=== PATIENT | female | born 1950 | race Caucasian/White ===

== ENCOUNTER 2016-05-30 03:31 | Inpatient (IN) | payer OTHER ==
[~2016-05-30] VITALS: Ht 157.5 cm; Wt 51.0 kg
[2016-05-30 04:31] LABS: ABSOLUTE BASOPHIL COUNT 0.1 /CUMM (0.0-0.2); ABSOLUTE EOSINOPHIL COUNT 0.1 /CUMM (0.0-0.7); ABSOLUTE GRANULOCYTE CT 10.9 /CUMM (1.4-6.5); ABSOLUTE LYMPH COUNT 3.2 /CUMM (1.2-3.4); ABSOLUTE MONOCYTE COUNT 0.7 /CUMM (0.10-0.60); BASOPHIL % 0.4 % (0.0-2.0); EOSINOPHIL % 0.6 % (0-5); GRANULOCYTE % 72.8 % (42.2-75.2); HEMATOCRIT 43.7 % (37-47); MEAN CORPUSCULAR HGB 29.4 PG (27.0-31.0); MEAN CORPUSCULAR HGB CONC 33.3 G/DL (33.0-37.0); MEAN CORPUSCULAR VOLUME 88.1 FL (81.0-99.0); MEAN PLATELET VOLUME 9.1 FL (7.4-10.4); PLATELET COUNT 359 /CUMM (130-400); RBC DISTRIBUTION WIDTH 14.3 % (11.5-14.5); RED BLOOD CELL CT 4.96 /CUMM (4.20-5.40)
--- NOTE | 2016-05-30 04:40 | RADIOLOGY REPORT ---
EXAMINATION: XR PORTABLE CHEST CLINICAL INFORMATION: Cough and shortness of breath COMPARISON: None TECHNIQUE: Portable AP view of the chest was obtained. FINDINGS: The lungs are well expanded. Increased interstitial markings are seen at the lung bases with bronchial wall thickening. Alejandro B-lines noted. No pneumothorax. No pleural effusion. The cardiomediastinal silhouette is within normal limits. IMPRESSION: Findings are most consistent with mild interstitial edema, although a small airways process is possible.
--- NOTE | 2016-05-30 05:16 | ED DYSPNEA/ASTHMA COMPLAINT ---
History of Present Illness General Chief Complaint: Dyspnea (COPD, CHF, Other) Stated Complaint: DIFF BREATHING Source: patient, family, old records Exam Limitations: no limitations Vital Signs & Intake/Output Vital Signs & Intake/Output Vital Signs Date Time Temp Pulse Resp B/P Pulse O2 O2 Flow FiO2 Ox Delivery Rate 05/30 0634 96.3 74 20 156/93 99 Nasal 2.0L Cannula 05/30 0519 97.9 91 22 150/89 93 Nasal 2.0L Cannula 05/30 0424 97.9 90 24 174/86 94 Nasal 2.0L Cannula Allergies Coded Allergies: codeine (Intermediate, GI UPSET 05/30/16) NSAIDS (Non-Steroidal Anti-Inflamma (Mild, GI UPSETS 05/30/16) albuterol (Mild, JITTERY 05/30/16) Reconcile Medications Aspirin (Aspirin*) 81 MG TAB.CHEW 81 MG PO DAILY HEART (Reported) Clopidogrel Bisulfate (Clopidogrel) 75 MG TABLET 75 MG PO DAILY HEART ( Reported) Diazepam 10 MG TABLET 5 MG PO PRN ANXIETY (Reported) Esomeprazole (Nexium) 40 MG CAPSULE.DR 40 MG PO DAILY ACID REFLUX (Reported) Fenofibrate Nanocrystallized (Fenofibrate) 145 MG TABLET 145 MG PO DAILY CHOLESTEROL (Reported) Furosemide 40 MG TABLET 40 MG PO DAILY CHF (Reported) Metoprolol Succinate 50 MG TAB.ER.24H 50 MG PO DAILY HTN (Reported) Rosuvastatin Calcium (Crestor) 5 MG TABLET 5 MG PO DAILY BAD CHOLESTEROL ( Reported) Triage Note: SEE NURSES NOTE Triage Nurses Notes Reviewed? yes Onset: 2 weeks Duration: week(s):, continues in ED, getting worse Timing: recent history Severity: severe Activities at Onset: rest Prior Episodes/Possible Cause: illness exposure Modifying Factors: Improves With: rest. Worsens With: movement. Associated Symptoms: cough, loss of appetite, wheezing, weakness LMP (ages 10-50): post menopausal : No Patient currently breastfeeds: No HPI: 2 weeks prior to admission patient complains of progressive shortness of breath nonproductive cough chills wheezing weakness nausea and vomiting. She denies complaint of fever chest pain diarrhea abdominal pain dysuria rash bleeding. Past History Travel History Traveled to [place] past 21 day No Medical History Any Pertinent Medical History? see below for history Cardiovascular: OR 204 Respiratory: COPD Gastrointestinal: GERD, hiatal hernia, GALL STONES Renal: KIDNEY STONES Surgical History Surgical History: non-contributory Psychosocial History What is your primary language Chadian Tobacco Use: Current Daily Use Daily Tobacco Use Amount/Type: => 5 Cigarettes daily ETOH Use: denies use Illicit Drug Use: denies illicit drug use Family History Hx Contributory? No Review of Systems Review of Systems Constitutional: Reports: see HPI, chills, malaise, weakness. EENTM: Reports: no symptoms. Respiratory: Reports: see HPI, cough, short of breath, wheezing. Cardiovascular: Reports: no symptoms. GI: Reports: no symptoms. Genitourinary: Reports: no symptoms. Musculoskeletal: Reports: no symptoms. Skin: Reports: no symptoms. Neurological/Psychological: Reports: no symptoms. Hematologic/Endocrine: Reports: no symptoms. Immunologic/Allergic: Reports: no symptoms. All Other Systems: Reviewed and Negative Physical Exam Physical Exam General Appearance: well developed/nourished, alert, awake, anxious, moderate distress Head: atraumatic, normal appearance Eyes: Bilateral: normal appearance, PERRL, EOMI. Ears, Nose, Throat: normal pharynx, normal ENT inspection, hearing grossly normal Neck: normal inspection, supple, full range of motion, no midline tenderness Respiratory: chest non-tender, decreased breath sounds, wheezing, rales, respiratory distress (moderate) Cardiovascular: regular rate/rhythm, normal peripheral pulses, norml femoral pulses equa Peripheral Pulses: 4+ carotid (R), 4+ carotid (L) Gastrointestinal: normal bowel sounds, soft, non-tender, no organomegaly Extremities: normal inspection, normal capillary refill, normal range of motion, no edema Neurologic/Psych: no motor/sensory deficits, awake, alert, oriented x 3, normal gait, normal mood/affect, 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 No Severe Sepsis Present: No Septic Shock Present: No Progress Differential Diagnosis: asthma, AMI, bronchitis, CHF, COPD, pneumonia Plan of Care: Orders Procedure Date/time Status Regular Diet 05/30 B Active Patient Data 05/30 634 Active OXYGEN SETUP (GEN) 05/30 516 Active Saline Lock 05/30 516 Active Admit to inpatient 05/30 516 Active Vital Signs 05/30 516 Active Activity/Ambulation 05/30 516 Active Code Status 05/30 04 Active Intake & Output 05/30 446 Active BLOOD CULTURE 05/30 040 Active TROPONIN LEVEL 05/30 358 Complete LIPASE 05/30 358 Complete COMPREHENSIVE METABOLIC PANEL 05/30 358 Complete CBC WITHOUT DIFFERENTIAL 05/30 358 Complete B-TYPE NATRIURETIC PEP (BNP) 05/30 358 Complete EKG 05/30 033 Active Laboratory Tests 05/30/16 0415: Anion Gap 12, Estimated GFR > 60, BUN/Creatinine Ratio 23.3, Glucose 126 H, Calcium 9.9, Total Bilirubin 0.9, AST 53 H, ALT 46, Alkaline Phosphatase 78, Troponin I < 0.01, Zfa-G-Zljfywerufn Pept 5720 H, Total Protein 7.4, Albumin 4.3, Globulin 3.1, Albumin/Globulin Ratio 1.4, Lipase 123, CBC w Diff NO MAN DIFF REQ, RBC 4.96, MCV 88.1, MCH 29.4, RDW 14.3, MPV 9.1, Gran % 72.8, Lymphocytes % 21.6, Monocytes % 4.6, Eosinophils % 0.6, Basophils % 0.4, Absolute Granulocytes 10.9 H, Absolute Lymphocytes 3.2, Absolute Monocytes 0.7 H, Absolute Eosinophils 0.1, Absolute Basophils 0.1, PUBS MCHC 33.3 Microbiology 05/30 454 BLOOD: Blood Culture - RECD 05/31 427 BLOOD: Blood Culture - RECD Diagnostic Imaging: Viewed by Me: Radiology Read. Discussed w/RAD: Radiology Read. CXR Impression: Findings are most consistent with mild interstitial edema, although a small airways process is possible. Initial ED EKG: normal axis, normal intervals, normal p-waves, normal QRS complex, normal sinus rhythm, abnormal Q waves (inferior) Rhythm Strip: normal sinus rhythm Departure Departure Time of Disposition: 514 Disposition: STILL A PATIENT Condition: Stable Clinical Impression Primary Impression: Pneumonia Qualifiers: Pneumonia type: due to unspecified organism Laterality: bilateral Lung location: unspecified part of lung Qualified Code: J18.9 - Pneumonia, unspecified organism Secondary Impressions: CHF (congestive heart failure) Qualifiers: Congestive heart failure type: unspecified congestive heart failure type Congestive heart failure chronicity: acute Qualified Code: I50.9 - Heart failure, unspecified Nausea and vomiting in adult patient Referrals: UNKNOWN (PCP/Family) Departure Forms: Customer Survey General Discharge Information Admission Note Spoke With: JOB ANDREW MD Documentation of Exam: Documentation of any treatments & extenuating circumstances including Concerns Regarding Discharge (functional status, medication knowledge or non-compliance, living conditions, etc.) that warrant an admission rather than observation: Supplemental oxygen IV steroids IV antibiotic IV diuresis medication adjustment anti-emetic continuing care discharge planning Critical Care Note Critical Care Note Critical Care Time: non-applicable
[2016-05-30] MEDS ORDERED: FUROSEMIDE40 M1 PO (05:33)
[2016-05-30] MEDS ORDERED: DIAZEPAM10 M1 PO (05:34)
[2016-05-30] MEDS ORDERED: METOPROLOL SUCC50 M2 PO (05:34)
[2016-05-30] MEDS ORDERED: CLOPIDOGREL75 M1 PO (05:36)
[2016-05-30] MEDS ORDERED: FENOFIBRATE145 M1 PO (05:37)
[2016-05-30] MEDS ORDERED: NEXIUM40 M1 PO (05:40)
[2016-05-30] MEDS ORDERED: ASPIRIN81 M4 PO (05:41)
[2016-05-30] MEDS ORDERED: CRESTOR5 M1 PO (05:44)
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
[2016-05-30 11:54] LABS: PT 11.5 SEC (9.4-12.5)
[2016-05-30 11:55] VITALS: BP 132/72
--- NOTE | 2016-05-30 12:09 | Cons- Cardiology ---
General Information and HPI Consulting Request Date of Consult: 05/30/16 Requested By: JOB ANDREW MD Reason for Consult: CHF History of Present Illness: The patient is a 66-year-old female with history of CAD, status post PCI in 2003 , COPD, hypertension, hyperlipidemia, GERD who presented with complaint of shortness of breath. She was in her usual state of health until 2 weeks ago. For the past 2 weeks she has noted worsening shortness of breath which is increased with ambulation and with lying flat. She also notes frequent cough productive of small amounts of sputum. She notes recent nausea and had several episodes of vomiting. She has had difficulty sleeping because of the orthopnea. She describes recent chest discomfort which she describes as a sharp pain on the left side of her chest associated with tenderness to palpation of the chest wall. No syncope. No palpitations. No lightheadedness or dizziness. She previously followed up with Dr. Johnson, who , and she is now scheduled to see Dr. Garcia, however she has not seen him yet. Allergies/Medications Allergies: Coded Allergies: codeine (Intermediate, GI UPSET 05/30/16) NSAIDS (Non-Steroidal Anti-Inflamma (Mild, GI UPSETS 05/30/16) albuterol (Mild, JITTERY 05/30/16) atorvastatin (From LIPITOR) (Severe, RESTLES LEGS, MUSCLE THIGHTNES 05/30/16) Home Med List: Aspirin (Aspirin*) 81 MG TAB.CHEW 81 MG PO DAILY HEART (Reported) Clopidogrel Bisulfate (Clopidogrel) 75 MG TABLET 75 MG PO DAILY HEART ( Reported) Diazepam 10 MG TABLET 5 MG PO PRN ANXIETY (Reported) Esomeprazole (Nexium) 40 MG CAPSULE.DR 40 MG PO DAILY ACID REFLUX (Reported) Fenofibrate Nanocrystallized (Fenofibrate) 145 MG TABLET 145 MG PO DAILY CHOLESTEROL (Reported) Furosemide 40 MG TABLET 40 MG PO DAILY CHF (Reported) Metoprolol Succinate 50 MG TAB.ER.24H 50 MG PO DAILY HTN (Reported) Rosuvastatin Calcium (Crestor) 5 MG TABLET 5 MG PO DAILY BAD CHOLESTEROL ( Reported) Current Medications: Current Medications Sig/Rodger Start time Last Medication Dose Route Stop Time Status Admin Acetaminophen 0 .STK-MED ONE 05/30 0845 DC IV Acetaminophen 650 MG Q6P PRN 05/30 0745 AC PO Acetaminophen 1,000 MG Q6P PRN 05/30 0745 AC 05/30 IV 0846 Aspirin 81 MG DAILY 05/30 1000 AC 05/30 PO 1133 Atorvastatin Calcium 20 MG 1700 05/30 1700 DC PO Ceftriaxone Sodium 0 .STK-MED ONE 05/30 0510 DC .ROUTE Ceftriaxone Sodium 1,000 MG ONCE ONE 05/30 0500 DC 05/30 IV 05/30 0501 0518 Clopidogrel Bisulfate 75 MG DAILY 05/30 1000 AC 05/30 PO 1133 Diazepam 5 MG DAILY PRN 05/30 0900 AC PO Fenofibrate 145 MG DAILY 05/30 1000 AC 05/30 PO 1133 Furosemide 40 MG 7:30 AM, & 4:30 PM 05/30 1630 AC 05/30 IV 1646 Furosemide 0 .STK-MED ONE 05/30 0509 DC IV Furosemide 40 MG ONCE ONE 05/30 0500 DC 05/30 IV 05/30 0501 0510 Heparin Sodium 5,000 UNIT Q8 05/30 1400 AC 05/30 (Porcine) SC 1646 Hydromorphone HCl 0.5 MG Q4P PRN 05/30 0745 AC 05/30 IV 1646 Methylprednisolone 0 .STK-MED ONE 05/30 0411 DC .ROUTE Methylprednisolone 125 MG ONCE ONE 05/30 0400 DC 05/30 IV 05/30 0401 0449 Metoclopramide HCl 10 MG ONCE ONE 05/30 0500 DC 05/30 IV 05/30 0501 0500 Metoclopramide HCl 0 .STK-MED ONE 05/30 0441 DC .ROUTE Metoprolol Succinate 50 MG DAILY 05/30 1000 AC 05/30 PO 1133 Omeprazole 40 MG DAILY AC 05/31 0700 AC PO Ondansetron HCl 4 MG ONCE ONE 05/30 0415 DC 05/30 IV 05/30 0416 0449 Ondansetron HCl 0 .STK-MED ONE 05/30 0412 DC .ROUTE Patient Medication 1 UNIT 0700 05/31 0700 AC Teaching ED 05/31 0701 Patient Medication 1 UNIT 1700 05/30 1700 DC 05/30 Teaching ED 05/30 1701 1649 Patient Medication 1 UNIT 1430 05/30 1430 DC 05/30 Teaching ED 05/30 1431 1649 Patient Medication 1 UNIT 1400 05/30 1400 DC 05/30 Teaching ED 05/30 1401 1649 Patient Medication 1 UNIT 1000 05/30 1000 DC 05/30 Teaching ED 05/30 1001 1133 Rosuvastatin Calcium 5 MG 1700 05/31 1700 AC PO Review of Systems Review of Systems: No fever. No chills. No rash. No tremor. No melena. All other systems were reviewed, and were noted to be negative. Past History Travel History Traveled to [place] past 21 day No Medical History Blood Transfusion Hx: No Cardiovascular: hypertension, [place] 2004 HIGH CHOLESTEROL Respiratory: COPD, CHF Gastrointestinal: GERD, hiatal hernia, GALL STONES Renal: KIDNEY STONES Psychiatric: anxiety Surgical History Surgical History: appendectomy, cholecystectomy, hysterectomy (1988), CAD s\p stents in 2003 kidney stones REMOVED carpal tunnel Family History Relations & Conditions If Any: SISTER FH: multiple sclerosis FATHER FH: emphysema MOTHER FH: cirrhosis Psychosocial History Where Do You Live? Home Who Do You Live With? self Services at Home: None Primary Language: Russian Smoking Status: Current Some Day Smoker ETOH Use: denies use Illicit Drug Use: denies illicit drug use Functional Ability ADLs Independent: dressing, eating, toileting, bathing. Ambulation: independent IADLs Independent: shopping, housework, finances, food prep, telephone, transportation , medication admin. Employment History Employment: Retired Profession/Employer Previously employed in [employer] Exam & Diagnostic Data Vital Signs and I&O Vital Signs Date Time Temp Pulse Resp B/P Pulse O2 O2 Flow FiO2 Ox Delivery Rate 05/30 1155 98.0 79 20 132/72 98 Nasal 2.0L Cannula 05/30 1133 68 130/78 05/30 1032 Nasal 2.0L Cannula 05/30 0953 Nasal 2.0L Cannula 05/30 0634 96.3 74 20 156/93 99 Nasal 2.0L Cannula 05/30 0519 97.9 91 22 150/89 93 Nasal 2.0L Cannula 05/30 0424 97.9 90 24 174/86 94 Nasal 2.0L Cannula Intake & Output 05/30 1600 05/30 0800 05/30 0000 05/29 1600 05/29 0800 05/29 0000 Intake Total 800 50 Output Total 300 1350 Balance 500 -1300 Intake, IV 50 Intake, Oral 800 Output, Urine 300 1350 Patient 115 lb 118 lb Weight Physical Exam: Gen: The patient is in no acute distress HEENT: Normal nose, ears, and oropharynx. Pupils equal bilaterally. Conjunctiva normal. Neck: Supple with no JVD, no masses, and no thyromegaly Lungs: Rales in the bases bilaterally with normal respiratory effort Heart: RRR, S1, S2, no murmurs. No peripheral edema, 1+ pulses in the lower extremities bilaterally Abdomen: Soft, nontender, no masses. No hepatomegaly. No splenomegaly Extremities: No clubbing or cyanosis. Normal muscle strength in the upper and lower extremities Skin: Normal skin turgor with no skin ulcers or lesions noted. Neuro: Cranial nerves intact. Sensation intact Psych: Alert and oriented 3 with appropriate affect Labs/Medardo Results: Laboratory Tests 05/30 05/30 05/30 1736 1610 1120 Chemistry Troponin I (< 0.11 ng/ml) < 0.01 < 0.01 Coagulation PT (9.4 - 12.5 SEC) 11.5 INR (0.90 - 1.19) 1.10 Urines Urinalysis LIGHT H Urine Color (YEL,AMB,STR) YEL Urine Clarity (CLEAR) HAZY H Urine pH (5.0 - 8.0) 6.0 Ur Specific [place] (1.001 - 1.035) 1.015 Urine Protein (NEG,<30 MG/DL) NEG Urine Ketones (NEG) NEG Urine Nitrite (NEG) NEG Urine Bilirubin (NEG) NEG Urine Urobilinogen (0.1 - 1.0 EU/dl) 0.2 Ur Leukocyte Esterase (NEG) MOD H Ur Microscopic SEDIMENT EXAMINED Urine WBC (0 - 2 /HPF) 25-50 H Ur Epithelial Cells (NONE,FEW) MOD H Urine Bacteria (NEG/NONE) FEW H Urine Mucus (FEW,NONE) FEW Urine Hemoglobin (NEG) NEG Urine Glucose (N MG/DL) NEG 05/30 0415 Chemistry Sodium (137 - 145 mmol/L) 143 Potassium (3.5 - 5.1 mmol/L) 4.0 Chloride (98 - 107 mmol/L) 107 Carbon Dioxide (22 - 30 mmol/L) 24 Anion Gap (5 - 16) 12 BUN (7 - 17 mg/dL) 21 H Creatinine (0.5 - 1.0 mg/dL) 0.9 Estimated GFR (>60 ml/min) > 60 BUN/Creatinine Ratio (7 - 25 %) 23.3 Glucose (65 - 99 mg/dL) 126 H Hemoglobin A1c (4.2 - 5.8 %) 5.6 Calcium (8.4 - 10.2 mg/dL) 9.9 Total Bilirubin (0.2 - 1.3 mg/dL) 0.9 AST (14 - 36 U/L) 53 H ALT (9 - 52 U/L) 46 Alkaline Phosphatase (<127 U/L) 78 Troponin I (< 0.11 ng/ml) < 0.01 [id number] Pept (<125 pg/mL) 5720 H Total Protein (6.3 - 8.2 g/dL) 7.4 Albumin (3.5 - 5.0 g/dL) 4.3 Globulin (1.9 - 4.2 gm/dL) 3.1 Albumin/Globulin Ratio (1.1 - 2.2 %) 1.4 Lipase (23 - 300 U/L) 123 TSH (0.270 - 4.200 uIU/mL) 6.610 H Hematology CBC w Diff NO MAN DIFF REQ WBC (4.8 - 10.8 /CUMM) 15.0 H RBC (4.20 - 5.40 /CUMM) 4.96 Hgb (12.0 - 16.0 G/DL) 14.6 Hct (37 - 47 %) 43.7 MCV (81.0 - 99.0 FL) 88.1 MCH (27.0 - 31.0 PG) 29.4 RDW (11.5 - 14.5 %) 14.3 Plt Count (130 - 400 /CUMM) 359 MPV (7.4 - 10.4 FL) 9.1 Gran % (42.2 - 75.2 %) 72.8 Lymphocytes % (20.5 - 51.1 %) 21.6 Monocytes % (1.7 - 9.3 %) 4.6 Eosinophils % (0 - 5 %) 0.6 Basophils % (0.0 - 2.0 %) 0.4 Absolute Granulocytes (1.4 - 6.5 /CUMM) 10.9 H Absolute Lymphocytes (1.2 - 3.4 /CUMM) 3.2 Absolute Monocytes (0.10 - 0.60 /CUMM) 0.7 H Absolute Eosinophils (0.0 - 0.7 /CUMM) 0.1 Absolute Basophils (0.0 - 0.2 /CUMM) 0.1 PUBS MCHC (33.0 - 37.0 G/DL) 33.3 Diagnostic Data EKG Results EKG tracing is independently reviewed, and reveals sinus tachycardia at 102, left atrial abnormality, inferior infarct age undetermined CXR Results Findings are most consistent with mild interstitial edema, although a small airways process is possible. Assessment/Plan Assessment/Plan Assessment: 66-year-old female with history of CAD, status post PCI, COPD, hyperlipidemia, and hypertension presenting with shortness of breath and orthopnea. Physical findings are suggestive of acute exacerbation of congestive heart failure. The ejection fraction is unknown. She also notes atypical chest pain. Myocardial infarction has been ruled out with negative troponin 3. Recommendations: * Diurese with IV Lasix, 40 mg every 12 hours * Monitor input and output with daily weights * Check basic metabolic profile daily * Echocardiogram to evaluate left ventricular ejection fraction * Continue other cardiac medications. Consult Acknowledgment - Thank you for your consult request.
--- NOTE | 2016-05-30 12:27 | Cons- Pulmonary ---
General Information and HPI Consulting Request Date of Consult: 05/30/16 Requested By: Dr. Oreilly Reason for Consult: hx of COPD Source of Information: patient Exam Limitations: no limitations History of Present Illness: 66 year old woman. History of COPD per patient (Dx in 2010) after hospitalization at [facility]. Here with congestion, trace leg edema, elevated BNP and dyspnea. She is not wheezing, she has tried symbicort and proair without useful effects in the distant past, however she is not on any inhalers or oxygen. No history of PFTs and has not seen a resource director. Daily smoker for many years. Retired from office work. No environmental exposures. She has a hx of CAd, with stenting in 2003, GERD, HTN, HLD. She has experienced malaise, dyspnea that has worsened over past 2 weeks after a house remodeling. She was exerting herself including painting the ceiling. No sick contacts or travel hx. On lasix at home. Some chest pains that currently resolved. Allergies/Medications Allergies: Coded Allergies: codeine (Intermediate, GI UPSET 05/30/16) NSAIDS (Non-Steroidal Anti-Inflamma (Mild, GI UPSETS 05/30/16) albuterol (Mild, JITTERY 05/30/16) Home Med List: Aspirin (Aspirin*) 81 MG TAB.CHEW 81 MG PO DAILY HEART (Reported) Clopidogrel Bisulfate (Clopidogrel) 75 MG TABLET 75 MG PO DAILY HEART ( Reported) Diazepam 10 MG TABLET 5 MG PO PRN ANXIETY (Reported) Esomeprazole (Nexium) 40 MG CAPSULE.DR 40 MG PO DAILY ACID REFLUX (Reported) Fenofibrate Nanocrystallized (Fenofibrate) 145 MG TABLET 145 MG PO DAILY CHOLESTEROL (Reported) Furosemide 40 MG TABLET 40 MG PO DAILY CHF (Reported) Metoprolol Succinate 50 MG TAB.ER.24H 50 MG PO DAILY HTN (Reported) Rosuvastatin Calcium (Crestor) 5 MG TABLET 5 MG PO DAILY BAD CHOLESTEROL ( Reported) Current Medications: Current Medications Sig/Rodger Start time Last Medication Dose Route Stop Time Status Admin Acetaminophen 0 .STK-MED ONE 05/30 0845 DC IV Acetaminophen 650 MG Q6P PRN 05/30 0745 AC PO Acetaminophen 1,000 MG Q6P PRN 05/30 0745 AC 05/30 IV 0846 Aspirin 81 MG DAILY 05/30 1000 AC 05/30 PO 1133 Atorvastatin Calcium 20 MG 1700 03/13 1700 AC PO Ceftriaxone Sodium 0 .STK-MED ONE 05/30 0510 DC .ROUTE Ceftriaxone Sodium 1,000 MG ONCE ONE 05/30 0500 DC 05/30 IV 05/30 0501 0518 Clopidogrel Bisulfate 75 MG DAILY 05/30 1000 AC 05/30 PO 1133 Diazepam 5 MG DAILY PRN 05/30 0900 AC PO Fenofibrate 145 MG DAILY 05/30 1000 AC 05/30 PO 1133 Furosemide 40 MG 7:30 AM, & 4:30 PM 05/30 1630 AC IV Furosemide 0 .STK-MED ONE 05/30 0509 DC IV Furosemide 40 MG ONCE ONE 05/30 0500 DC 05/30 IV 05/30 0501 0510 Heparin Sodium 5,000 UNIT Q8 05/30 1400 AC (Porcine) SC Hydromorphone HCl 0.5 MG Q4P PRN 05/30 0745 AC 05/30 IV 1042 Methylprednisolone 0 .STK-MED ONE 05/30 0411 DC .ROUTE Methylprednisolone 125 MG ONCE ONE 05/30 0400 DC 05/30 IV 05/30 0401 0449 Metoclopramide HCl 10 MG ONCE ONE 05/30 0500 DC 05/30 IV 05/30 0501 0500 Metoclopramide HCl 0 .STK-MED ONE 05/30 0441 DC .ROUTE Metoprolol Succinate 50 MG DAILY 05/30 1000 AC 05/30 PO 1133 Omeprazole 40 MG DAILY AC 05/31 0700 AC PO Ondansetron HCl 4 MG ONCE ONE 05/30 0415 DC 05/30 IV 05/30 0416 0449 Ondansetron HCl 0 .STK-MED ONE 05/30 0412 DC .ROUTE Patient Medication 1 UNIT 0700 05/31 0700 Teaching ED 05/31 0701 Patient Medication 1 UNIT 1700 05/30 1700 Teaching ED 05/30 1701 Patient Medication 1 UNIT 1430 05/30 1430 Teaching ED 05/30 1431 Patient Medication 1 UNIT 1400 05/30 1400 Teaching ED 05/30 1401 Patient Medication 1 UNIT 1000 05/30 1000 OK 05/30 Teaching ED 05/30 1001 1133 Review of Systems Comments 18 point Review of Systems performed. Positive and negative pertinent findings are deliniated in the HPI. Otherwise the ROS is negative. Past History Travel History Traveled to [place] past 21 day No Medical History Blood Transfusion Hx: No Cardiovascular: hypertension, [place] 2004 HIGH CHOLESTEROL Respiratory: COPD, CHF Gastrointestinal: GERD, hiatal hernia, GALL STONES Renal: KIDNEY STONES Psychiatric: anxiety Surgical History Surgical History: appendectomy, cholecystectomy, hysterectomy (1988), CAD s\p stents in 2003 kidney stones REMOVED carpal tunnel Family History Relations & Conditions If Any: SISTER FH: multiple sclerosis FATHER FH: emphysema MOTHER FH: cirrhosis Psychosocial History Where Do You Live? Home Who Do You Live With? self Services at Home: None Primary Language: Macedonian Smoking Status: Current Some Day Smoker ETOH Use: denies use Illicit Drug Use: denies illicit drug use Functional Ability ADLs Independent: dressing, eating, toileting, bathing. Ambulation: independent IADLs Independent: shopping, housework, finances, food prep, telephone, transportation , medication admin. Employment History Employment: Retired Profession/Employer: Previously employed in [employer] Exam & Diagnostic Data Last 24 Hrs of Vital Signs/I&O Vital Signs Date Time Temp Pulse Resp B/P Pulse O2 O2 Flow FiO2 Ox Delivery Rate 05/30 1133 68 130/78 05/30 1032 Nasal 2.0L Cannula 05/30 0953 Nasal 2.0L Cannula 05/30 0634 96.3 74 20 156/93 99 Nasal 2.0L Cannula 05/30 0519 97.9 91 22 150/89 93 Nasal 2.0L Cannula 05/30 0424 97.9 90 24 174/86 94 Nasal 2.0L Cannula Intake & Output 05/30 1600 05/30 0800 05/30 0000 Intake Total 50 Output Total 300 1350 Balance -300 -1300 Intake, IV 50 Output, Urine 300 1350 Patient 115 lb 118 lb Weight Physical Exam Other Physical Findings: General - Alert, awake and oriented HEENT - normocephalic, atraumatic Cardiovascular - S1, S2 Lungs - bibasilar crackles Abdomen - soft, bowel sounds positive, no tenderness Extremities - trace edema Last 48 Hrs of Labs/Medardo: Laboratory Tests 05/30/16 1120: Troponin I Pending, PT 11.5, INR 1.10 05/30/16 0415: Anion Gap 12, Estimated GFR > 60, BUN/Creatinine Ratio 23.3, Glucose 126 H, Hemoglobin A1c Pending, Calcium 9.9, Total Bilirubin 0.9, AST 53 H, ALT 46, Alkaline Phosphatase 78, Troponin I < 0.01, [id number] Pept 5720 H, Total Protein 7.4, Albumin 4.3, Globulin 3.1, Albumin/Globulin Ratio 1.4, Lipase 123, TSH 6.610 H, CBC w Diff NO MAN DIFF REQ, RBC 4.96, MCV 88.1, MCH 29.4, RDW 14.3, MPV 9.1, Gran % 72.8, Lymphocytes % 21.6, Monocytes % 4.6, Eosinophils % 0.6, Basophils % 0.4, Absolute Granulocytes 10.9 H, Absolute Lymphocytes 3.2, Absolute Monocytes 0.7 H, Absolute Eosinophils 0.1, Absolute Basophils 0.1, PUBS MCHC 33.3 Assessment/Plan Impression/Plan: Impression 66 year old woman - history of CAD - reported COPD history - active tobacco dependence Plan - f/u cardiology recommendations - TTE - from the pulmonary perspective she is doing well and does not appear to be in an exacerbation of COPD - my contact information was provided for the patient - will pursue PFTs as an outpt - would not order any inhalers, will individualize therapy as necessary after PFTs - will consider LDCT screening on an outpatient basis - taper fio2 to off - TRC while hospitalized - DVT prophylaxis at all times Consult Acknowledgment - Thank you for your consult request.
--- NOTE | 2016-05-30 14:49 | Admission Certification ---
Admission Certification Certification Statement - As attending physician, I certify that at the time of - admission, based on clinical presentation, severity of - symptoms, need for further diagnostic testing and - therapeutic interventions, and risk of adverse outcomes - without in-hospital treatment, in my clinical assessment, - this patient requires an acute hospital stay for a minimum - of two nights or longer. I have also considered psychsocial - factors such as support system, advanced age, financial - issues, cognitive issues, and failed out-patient treatments, - past re-admission history, safety of patient, and lack of - compliance as applicable. Specific rationale supporting this admission is: Acute hypoxemic respiratory failure likely CHF exacerbation needs IV Lasix.
[2016-05-30 15:30] VITALS: BP 122/78
[2016-05-30 23:37] VITALS: BP 120/68
[2016-05-31] VITALS (7 sets, daily range): BP systolic 90–110; BP diastolic 50–72
--- NOTE | 2016-05-31 05:59 | PN- Pulmonary ---
Subjective HPI/Critical Care Issues: pt seen and examined feeling well awake comfortable no cp no n/v/d/c some cough persists, dry Objective Current Medications: Current Medications Sig/Rodger Start time Last Medication Dose Route Stop Time Status Admin Acetaminophen 0 .STK-MED ONE 05/30 0845 DC IV Acetaminophen 650 MG Q6P PRN 05/30 0745 AC PO Acetaminophen 1,000 MG Q6P PRN 05/30 0745 AC 05/30 IV 0846 Aspirin 81 MG DAILY 05/30 1000 AC 05/30 PO 1133 Atorvastatin Calcium 20 MG 1700 05/30 1700 DC PO Clopidogrel Bisulfate 75 MG DAILY 05/30 1000 AC 05/30 PO 1133 Diazepam 5 MG DAILY PRN 05/30 0900 AC PO Fenofibrate 145 MG DAILY 05/30 1000 AC 05/30 PO 1133 Furosemide 40 MG 7:30 AM, & 4:30 PM 05/30 1630 AC 05/30 IV 1646 Heparin Sodium 5,000 UNIT Q8 05/30 1400 AC 05/30 (Porcine) SC 2108 Hydromorphone HCl 0.5 MG Q4P PRN 05/30 0745 AC 05/31 IV 0005 Metoprolol Succinate 50 MG DAILY 05/30 1000 AC 05/30 PO 1133 Omeprazole 40 MG DAILY AC 05/31 0700 AC 05/30 PO 2125 Patient Medication 1 UNIT 0700 05/31 0700 AC Teaching ED 05/31 0701 Patient Medication 1 UNIT 1700 05/30 1700 DC 05/30 Teaching ED 05/30 1701 1649 Patient Medication 1 UNIT 1430 05/30 1430 NH 05/30 Teaching ED 05/30 1431 1649 Patient Medication 1 UNIT 1400 05/30 1400 DC 05/30 Teaching ED 05/30 1401 1649 Patient Medication 1 UNIT 1000 05/30 1000 DC 05/30 Teaching ED 05/30 1001 1133 Rosuvastatin Calcium 5 MG 1700 05/31 1700 AC PO Vital Signs & I&O Last 24 Hrs of Vitals and I&O: Vital Signs Date Time Temp Pulse Resp B/P Pulse O2 O2 Flow FiO2 Ox Delivery Rate 05/31 0000 95 Room Air 05/30 2337 98.0 66 18 120/68 97 Room Air 05/30 1600 96 Nasal 2.0L Cannula 05/30 1530 98.0 65 20 122/78 96 Nasal 2.0L Cannula 05/30 1155 98.0 79 20 132/72 98 Nasal 2.0L Cannula 05/30 1133 68 130/78 05/30 1032 Nasal 2.0L Cannula 05/30 0953 Nasal 2.0L Cannula 05/30 0634 96.3 74 20 156/93 99 Nasal 2.0L Cannula Intake & Output 05/31 0800 05/31 0000 05/30 1600 Intake Total 670 800 Output Total 900 300 Balance -230 500 Intake, IV 20 Intake, Oral 650 800 Number 0 Bowel Movements Output, Urine 900 300 Patient 115 lb Weight Exam Other Physical Findings: General - Alert, awake and oriented HEENT - normocephalic, atraumatic Cardiovascular - S1, S2 Lungs - bibasilar crackles Abdomen - soft, bowel sounds positive, no tenderness Extremities - trace edema Results Last 24 Hrs of Lab Results: Laboratory Tests 05/30/16 1736: Urinalysis LIGHT H, Urine Color YEL, Urine Clarity HAZY H, Urine pH 6.0, Ur Specific [place] 1.015, Urine Protein NEG, Urine Ketones NEG, Urine Nitrite NEG, Urine Bilirubin NEG, Urine Urobilinogen 0.2, Ur Leukocyte Esterase MOD H, Ur Microscopic SEDIMENT EXAMINED, Urine WBC 25-50 H, Ur Epithelial Cells MOD H, Urine Bacteria FEW H, Urine Mucus FEW, Urine Hemoglobin NEG, Urine Glucose NEG 05/30/16 1610: Troponin I < 0.01 05/30/16 1120: Troponin I < 0.01, PT 11.5, INR 1.10 Impression/Plan Impression/Plan Impression/Plan: Impression 66 year old woman - history of CAD - reported COPD history - active tobacco dependence Plan - f/u cardiology recommendations - f/u TTE - from the pulmonary perspective she is doing well and does not appear to be in an exacerbation of COPD - my contact information was provided for the patient - will pursue PFTs as an outpt - would not order any inhalers, will individualize therapy as necessary after PFTs - will consider LDCT screening on an outpatient basis - taper fio2 to off - TRC while hospitalized - DVT prophylaxis at all times No new recommendations, taper off o2
--- NOTE | 2016-05-31 08:10 | PN- Housestaff ---
BARBARA DIAZ,WILMER 05/31/16 0809: Subjective Follow-up For: CHF exacerbation Complaints: no complaints Tele-Events Since Last Visit: NSR Subjective: The patient was in a pleasant mood, she has been off oxygen since the morning and has been tolerating well. Review of Systems Constitutional: Reports: see HPI. Objective Last 24 Hrs of Vital Signs/I&O Vital Signs Date Time Temp Pulse Resp B/P Pulse O2 O2 Flow FiO2 Ox Delivery Rate 05/31 0822 54 122/72 05/31 0743 97.8 54 18 110/68 97 Room Air 05/31 0000 95 Room Air 05/30 2337 98.0 66 18 120/68 97 Room Air 05/30 1600 96 Nasal 2.0L Cannula 05/30 1530 98.0 65 20 122/78 96 Nasal 2.0L Cannula 05/30 1155 98.0 79 20 132/72 98 Nasal 2.0L Cannula 05/30 1133 68 130/78 05/30 1032 Nasal 2.0L Cannula 05/30 0953 Nasal 2.0L Cannula Intake & Output 05/31 1600 05/31 0800 05/31 0000 Intake Total 200 670 Output Total 400 900 Balance -200 -230 Intake, IV 20 Intake, Oral 200 650 Number 0 Bowel Movements Output, Urine 400 900 Patient 113 lb Weight Physical Exam General Appearance: Alert, Oriented X3 Skin: No Rashes, No Breakdown HEENT: PERRLA, EOMI Neck: No JVD, No thryomegaly Lymphatic: Axillary nl, Cervical nl Cardiovascular: Normal S1, Normal S2, No Murmurs Lungs: b/l basal crackles Abdomen: Soft, No Tenderness Neurological: Normal Speech, Strength at 5/5 X4 Ext Assessment/Plan Assessment: This is a 66-year-old female with a past medical history of hypertension, status post [place] and 3 stents placement in 2003, who presented to the [facility] with worsening shortness of breath. Assessment 1. Acute hypoxia likely secondary to acute CHF HFrEF as the echo shows 40-45% of EF and inferior wall akinesia 2. History of coronary artery disease 3. History of hypertension 4. History of GERD Plan Continue with telemetry for the next 24 hours if remaining in normal sinus rhythm we can DC telemetry -Patient has been in negative fluid balance of 1 L the last 24 hours .C/w Iv diureseis and probably switch to by mouth tomorrow at her home dose- -she should be started on a low-dose GISELA inhibitor, consider starting her on lisinopril 10 mg daily(will discuss with cardiology) -Continue with aspirin and Plavix -Continue with other medications -Consider starting omeprazole 20 mg daily considering the complaints of heartburn -Due to prophylaxis at all times -Ambulation as tolerated by the patient and possible discharge in the next 24 hours -The patient needs to be given the referral for a new primary care physician and youth teacher at the time of discharge -DVT ppx with ALPS alone as she has persistent bleeding from the s/q heparin site. Problem List: 1. CHF (congestive heart failure) 2. Pneumonia Pain Ratin Pain Location: heart burn Pain Goal: Remain pain free Pain Plan: po tyelnol asneeded Tomorrow's Labs & Rationales: cbc and bep DVT/Prophylaxis: mechanical, HAS BEEN BLEEDING AT THE SITE OF HEPARIN INJECTION. WILL C/W ALPS AT THIS POINT Consulting Request: Consulting Specialty: Cardiology HARRIET KATE MD 05/31/16 1309: Attending MD Review Statement Attending Statement Attending MD Statement: examined this patient, discuss w/resident/PA/TEST AUTOMATION ARCHITECT, agreed w/resident/PA/TEST AUTOMATION ARCHITECT, reviewed EMR data (avail), discussed with nursing, discussed with case mgmt, reviewed images Attending Assessment/Plan: Pt feels good and she feels like she is markedly better. She is off oxygen and able to talk. We spoke to Dr. Pierre and we are going to continue Lasix 40 IV twice a day today. Her usual outpatient dose is 40 daily. Her echo shows an EF of 40% so in addition to aspirin and Plavix and beta blaze and statin we are going to start lisinopril 10 mg a day. We are going to closely follow her renal function. Her COPD is stable at this point and will follow that. We are treating her for an acute systolic heart failure exacerbation.
[2016-05-31 08:26] LABS: ABSOLUTE BASOPHIL COUNT 0 /CUMM (0.0-0.2); ABSOLUTE EOSINOPHIL COUNT 0.1 /CUMM (0.0-0.7); ABSOLUTE GRANULOCYTE CT 4.3 /CUMM (1.4-6.5); ABSOLUTE LYMPH COUNT 4.3 /CUMM (1.2-3.4); ABSOLUTE MONOCYTE COUNT 0.6 /CUMM (0.10-0.60); BASOPHIL % 0.1 % (0.0-2.0); EOSINOPHIL % 0.6 % (0-5); GRANULOCYTE % 46.2 % (42.2-75.2); MEAN CORPUSCULAR HGB 29.5 PG (27.0-31.0); MEAN CORPUSCULAR HGB CONC 33.6 G/DL (33.0-37.0); MEAN CORPUSCULAR VOLUME 87.9 FL (81.0-99.0); PLATELET COUNT 316 /CUMM (130-400); RBC DISTRIBUTION WIDTH 14.4 % (11.5-14.5); RED BLOOD CELL CT 4.28 /CUMM (4.20-5.40)
--- NOTE | 2016-05-31 08:28 | ECHOCARDIOGRAM REPORT ---
MARCO ANTONIO CHOWDHURY Age: 66 : 1950 Gender: F Exam Date: 05/30/2016 14:25 Exam Location: [place] Ht (in): 62 Wt (lb): 115 BSA: 1.51 BP: 130 / 78 Ordering Physician: EVELIO ROYAL MD Referring Physician: Dane Pierre MD Technologist: Deborah Shah GABE Room Number: [id number] Indications: SHORTNESS OF BREATH Rhythm: Sinus Technical Quality: Good FINDINGS Left Ventricle Normal size left ventricle. Left ventricular ejection fraction is estimated at 40-45%. Midly decreased left ventricular systolic function. Inferior hypokinesis. Right Ventricle Normal right ventricular size and function. Right Atrium Normal right atrial size. Left Atrium Normal left atrial size. Mitral Valve Mitral valve thickened. Pgdp-wx-ortlwzat mitral regurgitation. Aortic Valve Diffuse thickening (sclerosis) of the aortic valve cusps without reduced excursion. No aortic stenosis. No aortic regurgitation. Tricuspid Valve Tricuspid valve not well visualized, grossly normal. Mild tricuspid regurgitation. No evidence of pulmonary hypertension. Pulmonic Valve Pulmonic valve not well visualized, grossly normal. Trace pulmonic regurgitation. Pericardium No pericardial effusion. Great Vessels Normal size aortic root. CONCLUSIONS Normal size left ventricle. Left ventricular ejection fraction is estimated at 40-45%. Midly decreased left ventricular systolic function. Inferior hypokinesis. Kyft-nz-hzcsrqki mitral regurgitation. Mild tricuspid regurgitation. Trace pulmonic regurgitation. Dane Pierre M.D. (Electronically Signed) Final Date: 31 May 2016 08:27 MEASUREMENTS (Male / Female) Normal Values 2D ECHO LV Diastolic Diameter PLAX 4.5 cm 4.2 - 5.9 / 3.9 - 5.3 cm LV Systolic Diameter PLAX 3.4 cm 2.1 - 4.0 cm LV Fractional Shortening PLAX 24.4 % 25 - 46 % LV Ejection Fraction 2D Teich 48.7 % IVS Diastolic Thickness 1.1 cm LVPW Diastolic Thickness 1.0 cm LV Relative Wall Thickness 0.5 RV Internal Dim ED PLAX 3.1 cm 1.9 - 3.8 cm LVOT Diameter 1.8 cm Aortic Root Diameter 2.6 cm LA Systolic Diameter LX 3.8 cm 3.0 - 4.0 / 2.7 - 3.8 cm LA Volume 43.0 cm 18 - 58 / 22 - 52 cm Ascending Aorta Diameter 3.4 cm DOPPLER AV Peak Velocity 110.0 cm/s AV Peak Gradient 4.8 mmHg AV Mean Velocity 84.0 cm/s AV Mean Gradient 3.0 mmHg AV Velocity Time Integral 24.9 cm LVOT Peak Velocity 96.3 cm/s LVOT Peak Gradient 3.7 mmHg LVOT Mean Velocity 65.0 cm/s LVOT Mean Gradient 2.0 mmHg LVOT Velocity Time Integral 18.9 cm LVOT Stroke Volume 48.1 cm AV Area Cont Eq vti 1.9 cm AV Area Cont Eq pk 2.2 cm MV Peak Velocity 111.0 cm/s MV Peak Gradient 4.9 mmHg MV Mean Velocity 60.1 cm/s MV Mean Gradient 2.0 mmHg Mitral E Point Velocity 106.0 cm/s Mitral A Point Velocity 52.3 cm/s Mitral E to A Ratio 2.0 MV PHT Velocity 115.0 cm/s MV Deceleration [place] 289.0 cm/s MV Pressure Half Time 119.4 ms MV Area PHT 1.8 cm MV Deceleration Time 180.0 ms TR Peak Velocity 294.0 cm/s TR Peak Gradient 34.6 mmHg Right Atrial Pressure 10.0 mmHg Pulmonary Artery Systolic Pressu 44.6 mmHg Right Ventricular Systolic Press 44.6 mmHg PV Peak Velocity 66.1 cm/s PV Peak Gradient 1.7 mmHg PV Mean Velocity 49.3 cm/s PV Mean Gradient 1.0 mmHg PV Velocity Time Integral 18.2 cm LV E' Lateral Velocity 6.4 cm/s Mitral E to LV E' Lateral Ratio 16.5 LV E' Septal Velocity 4.2 cm/s Mitral E to LV E' Septal Ratio 25.3
[2016-05-31 09:15] LABS: HEMATOCRIT 37.6 % (37-47)
[2016-05-31 09:28] LABS: WHITE BLOOD CELL COUNT 9.2 /CUMM (4.8-10.8)
--- NOTE | 2016-05-31 10:15 | PN- Cardiology ---
Subjective Subjective: The patient reports that she is feeling better. Shortness of breath is improving, but is not yet back to baseline. Still with orthopnea. No chest pain. No palpitations. No diaphoresis. Objective Vital Signs and I&Os Vital Signs Date Time Temp Pulse Resp B/P Pulse O2 O2 Flow FiO2 Ox Delivery Rate 05/31 0822 54 122/72 05/31 0743 97.8 54 18 110/68 97 Room Air 05/31 0000 95 Room Air 05/30 2337 98.0 66 18 120/68 97 Room Air 05/30 1600 96 Nasal 2.0L Cannula 05/30 1530 98.0 65 20 122/78 96 Nasal 2.0L Cannula 05/30 1155 98.0 79 20 132/72 98 Nasal 2.0L Cannula 05/30 1133 68 130/78 05/30 1032 Nasal 2.0L Cannula Intake & Output 05/31 1600 05/31 0800 05/31 0000 05/30 1600 05/30 0800 05/30 0000 Intake Total 200 670 800 50 Output Total 400 599 600 5528 Balance -200 -230 500 -1300 Intake, IV 20 50 Intake, Oral 200 650 800 Number 0 Bowel Movements Output, Urine 400 052 514 3876 Patient 113 lb 115 lb 118 lb Weight Physical Exam: Gen: The patient is in no acute distress HEENT: Normal nose, ears, and oropharynx. Pupils equal bilaterally. Conjunctiva normal. Neck: Supple with no JVD, no masses, and no thyromegaly Lungs: Rales in the bases bilaterally with normal respiratory effort Heart: RRR, S1, S2, no murmurs. No peripheral edema, 1+ pulses in the lower extremities bilaterally Abdomen: Soft, nontender, no masses. No hepatomegaly. No splenomegaly Extremities: No clubbing or cyanosis. Normal muscle strength in the upper and lower extremities Skin: Normal skin turgor with no skin ulcers or lesions noted. Neuro: Cranial nerves intact. Sensation intact Psych: Alert and oriented 3 with appropriate affect Current Medications: Current Medications Sig/Rodger Start time Last Medication Dose Route Stop Time Status Admin Acetaminophen 650 MG Q6P PRN 05/30 0745 AC PO Acetaminophen 1,000 MG Q6P PRN 05/30 0745 AC 05/30 IV 0846 Aspirin 81 MG DAILY 05/30 1000 AC 05/31 PO 0821 Atorvastatin Calcium 20 MG 1700 05/30 1700 DC PO Clopidogrel Bisulfate 75 MG DAILY 05/30 1000 AC 05/31 PO 0822 Diazepam 5 MG DAILY PRN 05/30 0900 AC PO Fenofibrate 145 MG DAILY 05/30 1000 AC 05/31 PO 0822 Furosemide 40 MG DAILY 06/01 1000 AC IV Furosemide 40 MG 7:30 AM, & 4:30 PM 05/30 1630 DC 05/31 IV 0821 Heparin Sodium 5,000 UNIT Q8 05/30 1400 AC 05/31 (Porcine) SC 0602 Hydromorphone HCl 0.5 MG Q4P PRN 05/30 0745 AC 05/31 IV 0821 Metoprolol Succinate 50 MG DAILY 05/30 1000 AC 05/31 PO 0822 Omeprazole 20 MG DAILY AC 05/31 0943 AC PO Omeprazole 40 MG DAILY AC 05/31 0700 AC 05/31 PO 0602 Patient Medication 1 UNIT 0700 05/31 0700 DC 05/31 Teaching ED 05/31 0701 0604 Patient Medication 1 UNIT 1700 05/30 1700 VT 05/30 Teaching ED 05/30 1701 1649 Patient Medication 1 UNIT 1430 05/30 1430 DC 05/30 Teaching ED 05/30 1431 1649 Patient Medication 1 UNIT 1400 05/30 1400 DC 05/30 [facility] ED 05/30 1401 1649 Potassium Chloride 40 MEQ ONCE ONE 05/31 0945 DC PO 05/31 0946 Rosuvastatin Calcium 5 MG 1700 05/31 1700 AC PO Results Last 48 Hrs of Labs/Mics: Laboratory Tests 05/31/16 0742: Anion Gap 11, Estimated GFR 55 L, BUN/Creatinine Ratio 23.0, Magnesium 2.1, Triglycerides 262 H, Cholesterol 129, LDL Cholesterol, Calc 41 L, HDL Cholesterol 36 L, Cholesterol/HDL Ratio 4, CBC w Diff NO MAN DIFF REQ, RBC 4.28 , MCV 87.9, MCH 29.5, RDW 14.4, MPV 9.0, Gran % 46.2, Lymphocytes % 46.1, Monocytes % 7.0, Eosinophils % 0.6, Basophils % 0.1, Absolute Granulocytes 4.3, Absolute Lymphocytes 4.3 H, Absolute Monocytes 0.6, Absolute Eosinophils 0.1, Absolute Basophils 0, PUBS MCHC 33.6 05/30/16 1736: Urinalysis LIGHT H, Urine Color YEL, Urine Clarity HAZY H, Urine pH 6.0, Ur Specific [place] 1.015, Urine Protein NEG, Urine Ketones NEG, Urine Nitrite NEG, Urine Bilirubin NEG, Urine Urobilinogen 0.2, Ur Leukocyte Esterase MOD H, Ur Microscopic SEDIMENT EXAMINED, Urine WBC 25-50 H, Ur Epithelial Cells MOD H, Urine Bacteria FEW H, Urine Mucus FEW, Urine Hemoglobin NEG, Urine Glucose NEG 05/30/16 1610: Troponin I < 0.01 05/30/16 1120: Troponin I < 0.01, PT 11.5, INR 1.10 05/30/16 0415: Anion Gap 12, Estimated GFR > 60, BUN/Creatinine Ratio 23.3, Glucose 126 H, Hemoglobin A1c 5.6, Calcium 9.9, Total Bilirubin 0.9, AST 53 H, ALT 46, Alkaline Phosphatase 78, Troponin I < 0.01, Lli-V-Mgovifcgkoe Pept 5720 H, Total Protein 7.4, Albumin 4.3, Globulin 3.1, Albumin/Globulin Ratio 1.4, Lipase 123, TSH 6.610 H, CBC w Diff NO MAN DIFF REQ, RBC 4.96, MCV 88.1, MCH 29.4, RDW 14.3, MPV 9.1, Gran % 72.8, Lymphocytes % 21.6, Monocytes % 4.6, Eosinophils % 0.6, Basophils % 0.4, Absolute Granulocytes 10.9 H, Absolute Lymphocytes 3.2, Absolute Monocytes 0.7 H, Absolute Eosinophils 0.1, Absolute Basophils 0.1, PUBS MCHC 33.3 Microbiology 05/31 1735 URINE ROUT: Legionella Antigen - COMP 05/31 1735 URINE ROUT: Streptococcus pneumoniae Antigen (M - COMP 05/30 1729 NASOPHARYN: Influenza Virus A & B Rapid Smear - COMP Recent Imaging Studies: Chest x-ray: Findings are most consistent with mild interstitial edema, although a small airways process is possible. Echocardiogram: Normal size left ventricle. Left ventricular ejection fraction is estimated at 40-45%. Midly decreased left ventricular systolic function. Inferior hypokinesis. Txcv-ds-ruitlidc mitral regurgitation. Mild tricuspid regurgitation. Trace pulmonic regurgitation. Assessment/Plan Assessment/Plan Assessment: 1. CAD, status post PCI 2. Hypertension 3. Hyperlipidemia 4. Acute heart failure with reduced ejection fraction Plan: * Continue IV Lasix * Monitor input and output with daily weights * Supplement potassium to greater than 4.0, and check magnesium level * Continue metoprolol * Start lisinopril 10 mg daily for reduced ejection fraction Continue telemetry? Yes
--- NOTE | 2016-05-31 18:04 | Event Note ---
Event Note Event Note: I was paged by the RN that patient was feeling slightly dizzy.When i saw the patient she was complaing of feeling slightly weak and slightly dizzy Her Vitals were as follows: BP 90/50 HR 52(baseline is 50-60), RR 18,Saturation 0f 94% on 1L NC A repeat BP after 30 mins was 92/60 Assessment: The patient BP might be secondary to the addition of ACEI as lillie says that she was on lisinopril many years back and had to be taken off by her amortization clerk due to low BP PLan Will give 250 ml of NS bolus and if still persistent consider giving another 250 Ml -Consder reassessing the dose of Lisinopril or BB in the morning after discussing with amortization clerk -Hold evening dose of lasix until SBP improves >110 Plan discussed in detail withh Night team,Patient and RN.
[2016-05-31] MEDS ORDERED: LISINOPRIL10 M1 PO (20:07)
--- NOTE | 2016-05-31 20:20 | Patient Discharge Instructions ---
Discharge Instructions General Discharge Information You were seen/treated for: Acute CHF You had these procedures: none Special Instructions: PLease f/u with your PCP in1 week of discharge. Acute Coronary Syndrome Inclusion Criteria At DC or during hospital stay patient has or had the following: ACS DIAGNOSIS No Discharge Core Measures Meds if any: Prescribed or Continued at Discharge Meds if any: NOT Prescribed or Continued at Discharge Congestive Heart Failure Inclusion Criteria At DC or during hospital stay patient has or had the following: CHF DIAGNOSIS Yes Discharge Core Measures Meds if any: Prescribed or Continued at Discharge GISELA/ARB for EF <40% No (hypotension to lisinopril) Meds if any: NOT Prescribed or Continued at Discharge Cerebrovascular accident Inclusion Criteria At DC or during hospital stay patient has or had the following: CVA/TIA Diagnosis No Discharge Core Measures Meds if any: Prescribed or Continued at Discharge Meds if any: NOT Prescribed or Continued at Discharge Venous thromboembolism Inclusion Criteria VTE Diagnosis No VTE Type NONE VTE Confirmed by (Test) NONE Discharge Core Measures - Per Current guidelines, there needs to be overlap - treatment for the first 5 days of Warfarin therapy. - If discharged on Warfarin prior to 5 days of - overlap therapy, the patient will need to be - assessed for post discharge needs including - *Post discharge parental anticoagulation - *Warfarin and/or parental anticoagulation education - *Follow up date to check INR post discharge At least 5 days overlap therapy as Inpatient No Meds if any: Prescribed or Continued at Discharge Note: Overlap Therapy is Warfarin and Anticoagulant Meds if any: NOT Prescribed or Continued at Discharge
[2016-06-01 00:55] VITALS: BP 140/90
--- NOTE | 2016-06-01 07:52 | PN- Housestaff ---
SUSHANT CASH 06/01/16 0751: Subjective Follow-up For: CHF exacerbation Subjective: Patient seen and examined today. Overnight ecvents noted. Patient reports improvement in her symptoms today. Blood pressure looks good 136/90. She is on 2 L NC, uses no oxygen at home. Per nursing staff, she her pulse oximetery on ambulation has been fine without the oxygen Review of Systems Constitutional: Reports: see HPI. Objective Last 24 Hrs of Vital Signs/I&O Vital Signs Date Time Temp Pulse Resp B/P Pulse O2 O2 Flow FiO2 Ox Delivery Rate 06/01 1042 65 136/90 06/01 0816 97.6 65 18 136/90 96 Room Air 06/01 0055 140/90 06/01 0000 Room Air 05/31 2347 98.1 60 18 108/60 97 Nasal Cannula 05/31 2220 108/60 05/31 1901 110/72 05/31 1757 102/68 05/31 1616 92/60 05/31 1553 97.4 56 20 90/50 96 Nasal 2.0L Cannula Intake & Output 06/01 1600 06/01 0800 06/01 0000 Intake Total 240 Output Total Balance 240 Intake, Oral 240 Patient 51.029 kg Weight Physical Exam General Appearance: Alert, Oriented X3, Cooperative, No Acute Distress Skin: No Rashes HEENT: Atraumatic Neck: Supple Cardiovascular: Regular Rate, Normal S1, Normal S2 Lungs: Clear to Auscultation, Normal Air Movement Abdomen: Normal Bowel Sounds, Soft, No Tenderness Extremities: No Edema, Normal Pulses Current Medications: Current Medications Sig/Rodger Start time Last Medication Dose Route Stop Time Status Admin Acetaminophen 650 MG Q6P PRN 05/30 0745 AC PO Acetaminophen 1,000 MG Q6P PRN 05/30 0745 AC 06/01 IV 0710 Aspirin 81 MG DAILY 05/30 1000 AC 06/01 PO 1041 Calcium Carbonate 500 MG DAILY 05/31 1343 AC PO Clopidogrel Bisulfate 75 MG DAILY 05/30 1000 AC 06/01 PO 1042 Diazepam 5 MG DAILY PRN 05/30 0900 AC PO Fenofibrate 145 MG DAILY 05/30 1000 AC 06/01 PO 1042 Furosemide 40 MG 7:30 AM, & 4:30 PM 06/01 0730 AC 06/01 IV 1041 Furosemide 40 MG BID 05/31 1630 DC IV Hydromorphone HCl 0.5 MG Q4P PRN 05/30 0745 DC 06/01 IV 0748 Lidocaine 1 PAT DAILY 06/01 1129 AC EXT Lisinopril 10 MG DAILY 05/31 1017 DC 05/31 PO 1159 Metoprolol Succinate 50 MG DAILY 05/30 1000 AC 06/01 PO 1042 Omeprazole 40 MG DAILY AC 05/31 0700 AC 06/01 PO 0709 Oxycodone/ 1 TAB Q6P PRN 05/31 1200 DC 05/31 Acetaminophen PO 1159 Rosuvastatin Calcium 5 MG 1700 05/31 1700 AC 05/31 PO 1737 Sodium Chloride 250 ML BOLUS ONE 05/31 1630 DC 05/31 IV 05/31 1729 1651 Last 24 Hrs of Lab/Medardo Results Last 24 Hrs of Labs/Mics: Laboratory Tests 06/01/16 0605: Anion Gap 13, Estimated GFR 45 L, BUN/Creatinine Ratio 27.5 H Assessment/Plan Assessment: This is a 66-year-old female with a past medical history of hypertension, status post [place] and 3 stents placement in 2003, who presented to the [facility] with worsening shortness of breath. Problem list 1. Acute hypoxia likely secondary to acute CHF HFrEF as the echo shows 40-45% of EF and inferior wall akinesia 2. History of coronary artery disease 3. History of hypertension 4. History of GERD Plan Dr. Gely masterson with Dr. Burgos today, regarding her events from overnight. The hypotension was most likely dye to 10 mg of lisinopril which has been discontinued now. Will continue on 40 mg of lasix daily with an outpatient follow up with Dr. Pierre or someone in their group. Her Senior Mechanical Technician in [facility] passes away so she needs a new collision center manager. Patient would need to be plugged into a CHF clinic to prevent excerbation of her CHF and for the need of IV lasix. She will be kept off lisinopril as she developed hypotension on it. Patient will be continued on aspirin and Plavix SHe is started on omeprazole 20 mg daily considering the complaints of heartburn DVT ppx with ALPS alone as she has persistent bleeding from the s/q heparin site. Problem List: 1. CHF (congestive heart failure) Pain Ratin Pain Location: n/a Pain Goal: Pain 4 or less Pain Plan: tylenol prn for pain tylenol 3 for pain Tomorrow's Labs & Rationales: cbc bep Consulting Request: Consulting Specialty: Cardiology GELY KATE MD 06/01/16 1115: Attending MD Review Statement Attending Statement Attending MD Statement: examined this patient, discuss w/resident/PA/GRINDER SET UP OPERATOR, agreed w/resident/PA/GRINDER SET UP OPERATOR, reviewed EMR data (avail), discussed with nursing, discussed with case mgmt, reviewed images Attending Assessment/Plan: Events overnight noted. Patient got her first dose of lisinopril 10 mg yesterday around noon and later in the afternoon she dropped her blood pressure. The Lasix was held and she wasn't given her Lasix till early a.m. She is irritated about this although I did try to explain to her at length the new EF of 40% and that's why the need for lisinopril. For now we have discontinued it. She is on the Lasix 40 IV twice a day. Her BUN and creatinine are up to 33 and 1.2 although her respiratory status appears markedly improved. She is also taking quite a lot of the IV Dilaudid. She took 3 or 4 doses yesterday and 2 doses of the day of admission. I explained to her at length the risks of opiate addiction and the need to escalate slowly. We will stop the IV Dilaudid, use the Lidoderm patch and Tylenol No. 3 and escalate analgesia in a stepwise fashion for chronic back pain. At this point will talk to cardiology about the heart failure namely the acute systolic heart failure with an EF of 40%
[2016-06-01 08:16] VITALS: BP 136/90
[2016-06-01 10:42] VITALS: BP 136/90
[2016-06-01] MEDS ORDERED: TYLENOL WITH C1 EAC1 PO (12:41)
--- NOTE | 2016-06-01 13:39 | PN- Pulmonary ---
Subjective HPI/Critical Care Issues: pt seen and examined doing well off oxygen dc planning no n/v/d/c Objective Current Medications: Current Medications Sig/Rodger Start time Last Medication Dose Route Stop Time Status Admin Acetaminophen 650 MG Q6P PRN 05/30 0745 AC PO Acetaminophen 1,000 MG Q6P PRN 05/30 0745 AC 06/01 IV 0710 Aspirin 81 MG DAILY 05/30 1000 AC 06/01 PO 1041 Calcium Carbonate 500 MG DAILY 05/31 1343 AC PO Clopidogrel Bisulfate 75 MG DAILY 05/30 1000 AC 06/01 PO 1042 Diazepam 5 MG DAILY PRN 05/30 0900 AC PO Fenofibrate 145 MG DAILY 05/30 1000 AC 06/01 PO 1042 Furosemide 40 MG 7:30 AM, & 4:30 PM 06/01 0730 AC 06/01 IV 1041 Furosemide 40 MG BID 05/31 1630 DC IV Hydromorphone HCl 0.5 MG Q4P PRN 05/30 0745 DC 06/01 IV 0748 Lidocaine 1 PAT DAILY 06/01 1129 AC EXT Lisinopril 10 MG DAILY 05/31 1017 DC 05/31 PO 1159 Metoprolol Succinate 50 MG DAILY 05/30 1000 AC 06/01 PO 1042 Omeprazole 40 MG DAILY AC 05/31 0700 AC 06/01 PO 0709 Oxycodone/ 1 TAB Q6P PRN 05/31 1200 DC 05/31 Acetaminophen PO 1159 Rosuvastatin Calcium 5 MG 1700 05/31 1700 AC 05/31 PO 1737 Sodium Chloride 250 ML BOLUS ONE 05/31 1630 DC 05/31 IV 05/31 1729 1651 Vital Signs & I&O Last 24 Hrs of Vitals and I&O: Vital Signs Date Time Temp Pulse Resp B/P Pulse O2 O2 Flow FiO2 Ox Delivery Rate 06/01 1042 65 136/90 06/01 0816 97.6 65 18 136/90 96 Room Air 06/01 0055 140/90 06/01 0000 Room Air 05/31 2347 98.1 60 18 108/60 97 Nasal Cannula 05/31 2220 108/60 05/31 1901 110/72 05/31 1757 102/68 05/31 1616 92/60 05/31 1553 97.4 56 20 90/50 96 Nasal 2.0L Cannula Intake & Output 06/01 1600 06/01 0800 06/01 0000 Intake Total 240 Output Total Balance 240 Intake, Oral 240 Patient 113 lb Weight Exam Other Physical Findings: General - Alert, awake and oriented HEENT - normocephalic, atraumatic Cardiovascular - S1, S2 Lungs - bibasilar crackles Abdomen - soft, bowel sounds positive, no tenderness Extremities - trace edema Results Last 24 Hrs of Lab Results: Laboratory Tests 06/01/16 0605: Anion Gap 13, Estimated GFR 45 L, BUN/Creatinine Ratio 27.5 H Impression/Plan Impression/Plan Impression/Plan: Impression 66 year old woman - history of CAD - reported COPD history - active tobacco dependence Plan - f/u cardiology recommendations - from the pulmonary perspective she is doing well and does not appear to be in an exacerbation of COPD - will pursue PFTs as an outpt - would not order any inhalers, will individualize therapy as necessary after PFTs - will consider LDCT screening on an outpatient basis - taper fio2 to off - TRC while hospitalized - DVT prophylaxis at all times f/u as outpt will sign off
--- NOTE | 2016-06-01 14:23 | Event Note ---
Event Note Event Note: I discussed with Dr. Vergara at length. Patient had a severe hypotensive reaction to lisinopril and she told Dr. Vergara that she suspects this is happened to her before with an melvin and arb. At this point we will not restart the Melvin inhibitor given the hypotension documented with it. We'll decrease her Lasix to her usual 40 mg once a day. She is feeling completely well and eager to leave. She is either going to follow-up with Dr. Pierre as an outpatient or see Dr. Sandoval's partner. She is going to decide that as an outpatient. Tobacco cessation has been counseled extensively, she understands that we treated her for heart failure and I spoke to her about dietary restrictions, use of Lasix diligently. She'll continue her beta blaze but no melvin inhibitor or ARB secondary to the hypotension. She is refusing visiting nurse and CHF clinic at this point.
--- NOTE | 2016-06-01 14:23 | PN- Cardiology ---
Subjective Subjective: The patient is doing well at the present time. The patient is quite upset about the events of the last 24 hours with hypotension noted after receiving Dilaudid, lisinopril, and Lasix. Today she is doing well. Anxious for discharge. No new symptoms noted. Objective Vital Signs and I&Os Vital Signs Date Time Temp Pulse Resp B/P Pulse O2 O2 Flow FiO2 Ox Delivery Rate 06/01 1042 65 136/90 06/01 0816 97.6 65 18 136/90 96 Room Air 06/01 0055 140/90 06/01 0000 Room Air 05/31 2347 98.1 60 18 108/60 97 Nasal Cannula 05/31 2220 108/60 05/31 1901 110/72 05/31 1757 102/68 05/31 1616 92/60 05/31 1553 97.4 56 20 90/50 96 Nasal 2.0L Cannula Intake & Output 06/01 1600 06/01 0800 06/01 0000 05/31 1600 05/31 0800 05/31 0000 Intake Total 480 240 480 200 670 Output Total 400 820 400 900 Balance 80 240 -340 -200 -230 Intake, IV 20 Intake, Oral 480 240 480 200 650 Number 0 Bowel Movements Output, Urine 400 820 400 900 Patient 113 lb 113 lb Weight Current Medications: Current Medications Sig/Rodger Start time Last Medication Dose Route Stop Time Status Admin Acetaminophen 650 MG Q6P PRN 05/30 0645 AC PO Acetaminophen 1,000 MG Q6P PRN 05/30 0745 AC 06/01 IV 0710 Aspirin 81 MG DAILY 05/30 1000 AC 06/01 PO 1041 Calcium Carbonate 500 MG DAILY 05/31 1343 AC PO Clopidogrel Bisulfate 75 MG DAILY 05/30 1000 AC 06/01 PO 1042 Diazepam 5 MG DAILY PRN 05/30 0900 AC PO Fenofibrate 145 MG DAILY 05/30 1000 AC 06/01 PO 1042 Furosemide 40 MG 7:30 AM, & 4:30 PM 06/01 0730 AC 06/01 IV 1041 Furosemide 40 MG BID 05/31 1630 DC IV Hydromorphone HCl 0.5 MG Q4P PRN 05/30 0745 DC 06/01 IV 0748 Lidocaine 1 PAT DAILY 06/01 1129 AC EXT Lisinopril 10 MG DAILY 05/31 1017 DC 05/31 PO 1159 Metoprolol Succinate 50 MG DAILY 05/30 1000 AC 06/01 PO 1042 Omeprazole 40 MG DAILY AC 05/31 0700 AC 06/01 PO 0709 Oxycodone/ 1 TAB Q6P PRN 05/31 1200 DC 05/31 Acetaminophen PO 1159 Rosuvastatin Calcium 5 MG 1700 05/31 1700 AC 05/31 PO 1737 Sodium Chloride 250 ML BOLUS ONE 05/31 1630 DC 05/31 IV 05/31 1729 1651 Results Last 48 Hrs of Labs/Mics: Laboratory Tests 06/01/16 0605: Anion Gap 13, Estimated GFR 45 L, BUN/Creatinine Ratio 27.5 H 05/31/16 0742: Anion Gap 11, Estimated GFR 55 L, BUN/Creatinine Ratio 23.0, Magnesium 2.1, Triglycerides 262 H, Cholesterol 129, LDL Cholesterol, Calc 41 L, HDL Cholesterol 36 L, Cholesterol/HDL Ratio 4, CBC w Diff NO MAN DIFF REQ, RBC 4.28 , MCV 87.9, MCH 29.5, RDW 14.4, MPV 9.0, Gran % 46.2, Lymphocytes % 46.1, Monocytes % 7.0, Eosinophils % 0.6, Basophils % 0.1, Absolute Granulocytes 4.3, Absolute Lymphocytes 4.3 H, Absolute Monocytes 0.6, Absolute Eosinophils 0.1, Absolute Basophils 0, PUBS MCHC 33.6 05/30/161735: Urinalysis LIGHT H, Urine Color YEL, Urine Clarity HAZY H, Urine pH 6.0, Ur Specific [place] 1.015, Urine Protein NEG, Urine Ketones NEG, Urine Nitrite NEG, Urine Bilirubin NEG, Urine Urobilinogen 0.2, Ur Leukocyte Esterase MOD H, Ur Microscopic SEDIMENT EXAMINED, Urine WBC 25-50 H, Ur Epithelial Cells MOD H, Urine Bacteria FEW H, Urine Mucus FEW, Urine Hemoglobin NEG, Urine Glucose NEG 05/30/16 1610: Troponin I < 0.01 Microbiology 05/31 1735 URINE ROUT: Legionella Antigen - COMP 05/31 1735 URINE ROUT: Streptococcus pneumoniae Antigen (M - COMP 05/30 1729 NASOPHARYN: Influenza Virus A & B Rapid Smear - COMP Assessment/Plan Assessment/Plan Assessment: 1. CAD, status post PCI 2. Hypertension 3. Hyperlipidemia 4. Acute heart failure with reduced ejection fraction Recommendations: -Continue current medical regimen -Out of bed as tolerated with plans for discharge today -For now, I would hold lisinopril at discharge. This can be readdressed and restarted at a lower dose as an outpatient when the patient follows up with cardiology. Continue telemetry? No
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
== END 2016-06-01 14:44 | DRG 291 ==
LOC: ENRESERVTM → ENRESERVDT → ERH 03:31 → 1NO 05:17 → ERHI 05:17 → 1NO 09:06
PROVIDERS: Emergency Medicine; Internal Medicine Infectious Disease; ADMIT Internal Medicine
DX: I11.0 Hypertensive heart disease with heart failure (principal); J96.01 Acute respiratory failure with hypoxia; I50.21 Acute systolic (congestive) heart failure; I25.10 Atherosclerotic heart disease of native coronary artery without angina pectoris; J44.9 Chronic obstructive pulmonary disease, unspecified; E78.5 Hyperlipidemia, unspecified; F41.9 Anxiety disorder, unspecified; K21.9 Gastro-esophageal reflux disease without esophagitis; F17.200 Nicotine dependence, unspecified, uncomplicated; Z95.5 Presence of coronary angioplasty implant and graft; F17.210 Nicotine dependence, cigarettes, uncomplicated; K44.9 Diaphragmatic hernia without obstruction or gangrene
CPT/HCPCS: 1NP; 36415; 81001; 82436; 87040; 87070; 87449; 87450; 87804; 87804-59; 93005; 93010; 93306; 96365; 96375; J0131; J0696; J1644; J1940; J2405; J2765; J2930; J3490; J7040

== ENCOUNTER 2017-11-30 11:18 | Emergency (ER) | payer OTHER ==
[~2017-11-30 11:18] MED LIST: ASPIRIN81 M4 PO; CLOPIDOGREL75 M1 PO; CRESTOR5 M1 PO; DIAZEPAM10 M1 PO; FENOFIBRATE160 M1 PO; FUROSEMIDE40 M1 PO; LISINOPRIL10 M1 PO; METOPROLOL SUCC50 M2 PO; NEXIUM40 M1 PO; PRAVASTATIN SOD20 M2 PO; TYLENOL WITH C1 EAC1 PO
[2017-11-30 11:57] LABS: ABSOLUTE BASOPHIL COUNT 0.1 /CUMM (0.0-0.2); ABSOLUTE EOSINOPHIL COUNT 0.1 /CUMM (0.0-0.7); ABSOLUTE GRANULOCYTE CT 3.6 /CUMM (1.4-6.5); ABSOLUTE LYMPH COUNT 2.8 /CUMM (1.2-3.4); ABSOLUTE MONOCYTE COUNT 0.6 /CUMM (0.10-0.60); BASOPHIL % 1.3 % (0.0-2.0); EOSINOPHIL % 1.3 % (0-5); GRANULOCYTE % 49.8 % (42.2-75.2); HEMATOCRIT 44.5 % (37-47); MEAN CORPUSCULAR HGB 30.2 PG (27.0-31.0); MEAN CORPUSCULAR HGB CONC 34.3 G/DL (33.0-37.0); MEAN CORPUSCULAR VOLUME 88.2 FL (81.0-99.0); MEAN PLATELET VOLUME 8.6 FL (7.4-10.4); PLATELET COUNT 369 /CUMM (130-400); RED BLOOD CELL CT 5.05 /CUMM (4.20-5.40); WHITE BLOOD CELL COUNT 7.2 /CUMM (4.8-10.8)
[2017-11-30] MEDS ORDERED: PRAVACHOL20 M2 PO (13:18)
[2017-11-30] MEDS ORDERED: DICYCLOMINE HCL10 M1 PO (13:50)
--- NOTE | 2017-11-30 13:50 | ED GI/GU/ABDOMINAL COMPLAINT ---
History of Present Illness General Chief Complaint: General Adult Stated Complaint: DIARRHEA X 10 DAYS Source: patient, old records Exam Limitations: no limitations Vital Signs & Intake/Output Vital Signs & Intake/Output Vital Signs Date Time Temp Pulse Resp B/P B/P Pulse O2 O2 Flow FiO2 Mean Ox Delivery Rate 11/30 1250 Room Air 11/30 1123 97.8 77 17 147/77 95 Room Air Allergies Coded Allergies: codeine (Intermediate, GI UPSET 05/30/16) NSAIDS (Non-Steroidal Anti-Inflamma (Mild, GI UPSETS 05/30/16) albuterol (Mild, JITTERY 05/30/16) atorvastatin (From LIPITOR) (Severe, RESTLES LEGS, MUSCLE THIGHTNES 05/30/16) Reconcile Medications Aspirin (Aspirin*) 81 MG TAB.CHEW 81 MG PO DAILY HEART (Reported) Clopidogrel Bisulfate (Clopidogrel) 75 MG TABLET 75 MG PO DAILY HEART ( Reported) Diazepam 10 MG TABLET 1 TAB PO Q12P PRN ANXIETY (Reported) Dicyclomine HCl 10 MG CAPSULE 1 CAP PO Q6P PRN PAIN/DIARRHEA Esomeprazole (Nexium) 40 MG CAPSULE.DR 40 MG PO DAILY ACID REFLUX (Reported) Fenofibrate 160 MG TABLET 1 TAB PO DAILY CHOLESTEROL (Reported) Furosemide 40 MG TABLET 40 MG PO DAILY CHF (Reported) Metoprolol Succinate 50 MG TAB.ER.24H 50 MG PO DAILY HTN (Reported) Pravastatin Sodium 20 MG TABLET 1 TAB PO DAILY CHOL (Reported) Pravastatin Sodium (Pravachol) 20 MG TABLET 1 TAB PO QPM CHOLESTEROL ( Reported) Rosuvastatin Calcium (Crestor) 5 MG TABLET 5 MG PO DAILY BAD CHOLESTEROL ( Reported) Triage Note: PT RETURNS TO ED WITH CONTINUED ABD PAIN AND DIARRHEA. SEEN FOR SAME ON MONDAY. TOOK IMMODIUM FOR 3 DAYS WITH NO IMPROVEMENT. +NAUSEA. DENIES FEVERS. DENIES HEMATURIA OR RECENT ABTS OR TRAVEL. HAS GI APPT ON 12/12. STATES FEELS DEHYDRATED. Triage Nurses Notes Reviewed? yes LMP (ages 10-50): post menopausal, unknown ? n Is pt currently ? No Onset: Gradual Duration: day(s): (11), changing over time, continues in ED Timing: multiple episodes today Quality/Severity: cramping Severity Numbers: 5 Location: generalized abdomen Radiation: no radiation Activities at Onset: none Prior Abdominal Problems: none Past Sexual History: Unobtainable at this time Associated Symptoms: diarrhea HPI: 67-year-old female past medical history of hypertension GERD COPD coronary artery disease this evaluation of diarrhea and abdominal pain. Patient was seen here initially several days ago for similar symptoms. Her evaluation was negative. She was given a prescription for Imodium and instructed to follow up with GI. Patient has appointment with GI on the . She states she has continued to have diarrhea despite Imodium. She still has some intermittent abdominal cramping. No blood in the diarrhea recent antibiotics recent travel recent surgery sick contacts. No fevers. She reports initially she was getting better yesterday and the day before but symptoms returned today with 4 episodes of watery diarrhea in the morning. She reports some nausea but no vomiting. She eating and drinking normally. No chest pain or shortness of breath. (Viet Cheek) Past History Travel History Traveled to [place] past 21 day No Medical History Any Pertinent Medical History? see below for history Neurological: NONE EENT: NONE Cardiovascular: hypertension, [place] 2004 HIGH CHOLESTEROL Respiratory: COPD, CHF Gastrointestinal: GERD, hiatal hernia, GALL STONES Hepatic: NONE Renal: KIDNEY STONES Musculoskeletal: NONE Psychiatric: anxiety Endocrine: NONE Blood Disorders: NONE Cancer(s): NONE CERTIFIED RESIDENTIAL MEDICATION AIDE/Reproductive: NONE History of MRSA: No History of VRE: No History of CDIFF: No Surgical History Surgical History: appendectomy, cholecystectomy, hysterectomy (1988), CAD s\p stents in 2003 kidney stones REMOVED carpal tunnel Psychosocial History Who do you live with Patient/Self Services at Home None What is your primary language Lao Tobacco Use: Current Daily Use Daily Tobacco Use Amount/Type: => 5 Cigarettes daily ETOH Use: denies use Illicit Drug Use: denies illicit drug use Family History Family History, If Any: SISTER FH: multiple sclerosis FATHER FH: emphysema MOTHER FH: cirrhosis Hx Contributory? No (Viet Cheek) Review of Systems Review of Systems Constitutional: Reports: no symptoms. EENTM: Reports: no symptoms. Respiratory: Reports: no symptoms. Cardiovascular: Reports: no symptoms. GI: Reports: see HPI, abdominal pain, diarrhea, nausea. Genitourinary: Reports: no symptoms. Musculoskeletal: Reports: no symptoms. Skin: Reports: no symptoms. Neurological/Psychological: Reports: no symptoms. Hematologic/Endocrine: Reports: no symptoms. Immunologic/Allergic: Reports: no symptoms. All Other Systems: Reviewed and Negative (Viet Cheek) Physical Exam Physical Exam General Appearance: well developed/nourished, no apparent distress, alert, awake Head: atraumatic, normal appearance Eyes: Bilateral: normal appearance, PERRL, EOMI. Ears, Nose, Throat, Mouth: hearing grossly normal, moist mucous membrane Neck: normal inspection, supple, full range of motion Respiratory: normal breath sounds, chest non-tender, no respiratory distress, lungs clear Cardiovascular: regular rate/rhythm, normal peripheral pulses Peripheral Pulses: 2+ radial (R), 2+ radial (L) Gastrointestinal: soft, non-tender Back: normal inspection, normal range of motion, no vertebral tenderness Extremities: normal range of motion Neurologic/Psych: no motor/sensory deficits, awake, alert, oriented x 3, normal gait, normal mood/affect Skin: intact, normal color, warm/dry Core Measures ACS in differential dx? No Sepsis Present: No Sepsis Focused Exam Completed? No (Viet Cheek) Progress Differential Diagnosis: appendicitis, biliary colic, bowel obstruction, cholecystitis, diverticulitis, gastritis, ischemic bowel, inflamm bowel dis, kidney stone, UTI/pyelo, colitis, colon cancer, bacterial gastritis, viral syndrome, C. difficile Plan of Care: Orders Procedure Date/time Status URINALYSIS 11/30 1124 Complete LIPASE 11/30 1124 Complete C-REACTIVE PROTEIN 11/30 1124 Complete COMPREHENSIVE METABOLIC PANEL 11/30 1124 Complete CBC WITHOUT DIFFERENTIAL 11/30 1124 Complete Current Medications Sig/Rodger Start time Last Medication Dose Stop Time Status Admin Dicyclomine HCl 20 MG ONCE ONE 11/30 1400 UNVr (Bentyl) 11/30 1401 Laboratory Tests 11/30/17 1145: Anion Gap 10, Estimated GFR 49 L, BUN/Creatinine Ratio 18.2, Glucose 107 H, Calcium 9.8, Total Bilirubin 0.7, AST 35, ALT 27, Alkaline Phosphatase 67, C- Reactive Prot, Quant < 0.5, Total Protein 7.1, Albumin 4.4, Globulin 2.7, Albumin/Globulin Ratio 1.6, Lipase 193, CBC w Diff NO MAN DIFF REQ, RBC 5.05, MCV 88.2, MCH 30.2, MCHC 34.3, RDW 13.0, MPV 8.6, Gran % 49.8, Lymphocytes % 39.2, Monocytes % 8.4, Eosinophils % 1.3, Basophils % 1.3, Absolute Granulocytes 3.6, Absolute Lymphocytes 2.8, Absolute Monocytes 0.6, Absolute Eosinophils 0.1, Absolute Basophils 0.1 11/30/17 1140: Urine Color YEL, Urine Clarity CLEAR, Urine pH 6.0, Ur Specific [place] 1.010, Urine Protein NEG, Urine Ketones NEG, Urine Nitrite NEG, Urine Bilirubin NEG, Urine Urobilinogen 0.2, Ur Leukocyte Esterase TRACE H, Ur Microscopic SEDIMENT EXAMINED, Urine WBC 1-3 H, Ur Epithelial Cells FEW, Urine Bacteria FEW H, Urine Hemoglobin NEG, Urine Glucose NEG Patient is back with persistent diarrhea. Her evaluation a few days ago was unremarkable including negative stool cultures negative C. difficile. She had a negative CT scan and labs at that time she is appointment with GI on the of this month but continues to have diarrhea no blood. Rather it is soft and nontender. Vital signs are stable. Labs are repeated patient was medicated with IV fluids and Bentyl. Lab work is unremarkable other than a potassium of 3.4 she was given 40 of KDur and instructed to eat high potassium foods. A note was sent to GI in order to move up her appointment. She appears clinically well advised to continue fluids discussed return precautions case discussed Dr. Urbina he agrees Initial ED EKG: none (Kunal PEREZ,Viet) Departure Departure Disposition: HOME OR SELF CARE Condition: Stable Clinical Impression Primary Impression: Diarrhea Qualifiers: Diarrhea type: unspecified type Qualified Code: R19.7 - Diarrhea, unspecified Referrals: Michael DIAZ,Grzegorz Rivero (PCP/Family) Bibi Gacria MD Additional Instructions: REST AND DRINK FLUIDS, EAT HIGH FIBER FOODS. BENTYL FOR PAIN AND DIARRHEA. MAKE A FOLLOW UP WITH GI SARBJIT. RETURN WITH ANY CONCERNS. Please note that there might be incidental findings in your evaluation that are unrelated to the current emergency department visit. Please notify your primary care doctor about this emergency department visit in order to obtain and review all of the testing performed so that these incidental findings can be monitored as needed. If you had an x-ray performed, please understand that some fractures or other findings may not be seen on the initial set of x-rays. If your symptoms persist you might need a repeat set of x-rays to check for such a fracture. If you had a laceration evaluated, please understand that foreign bodies such as glass or wood may not be visible to the naked eye or on plain x-rays. If the wound becomes red, swollen, increasingly more painful or if there is any drainage from the wound, please have it reevaluated by a physician for the possibility of a retained foreign body. If you're unable to follow up as outlined in the discharge instructions please return to the emergency department. Thank you for choosing the [facility] Emergency Department for your care. It was a pleasure to serve you today. Departure Forms: Customer Survey General Discharge Information Prescriptions: Current Visit Scripts Dicyclomine HCl 1 CAP PO Q6P PRN PAIN/DIARRHEA #30 CAP (Viet Cheek) PA/NURSE ORTHOPEDIC Co-Sign Statement Statement: ED Attending supervision documentation- [X] I saw and evaluated the patient. I have also reviewed all the pertinent lab results and diagnostic results. I agree with the findings and the plan of care as documented in the PA's/NURSE ORTHOPEDIC's documentation. [X] I have reviewed the ED Record and agree with the PA's/NURSE ORTHOPEDIC's documentation. [] Additions or exceptions (if any) to the PAs/NURSE ORTHOPEDIC's note and plan are summarized below: [] (Yong Urbina DO)
[2017-11-30 13:57] VITALS: BP 150/89
== END 2017-11-30 14:25 ==
LOC: ERH 11:18
PROVIDERS: Physician Assistant Medical
DX: R19.7 Diarrhea, unspecified (principal); I10 Essential (primary) hypertension; J44.9 Chronic obstructive pulmonary disease, unspecified; K44.9 Diaphragmatic hernia without obstruction or gangrene; K21.9 Gastro-esophageal reflux disease without esophagitis; E78.00 Pure hypercholesterolemia, unspecified; F17.210 Nicotine dependence, cigarettes, uncomplicated
CPT/HCPCS: 81001; 96374; 96375; J0131; J0500; J1885; J2405